=== PATIENT | male | born 1990 | race Caucasian/White ===

== ENCOUNTER 2023-08-11 16:27 | Inpatient (IN) | payer MEDICARE, MEDICAID, SELFPAY ==
[2023-08-11 16:45] VITALS: BP 107/51; PULSE 59; RESP 16; TEMP 36.8; O2SAT 98
[2023-08-11 16:47] VITALS: BMI 31.9
[2023-08-11 22:00] VITALS: BP 107/69; PULSE 68; RESP 17; TEMP 36.9; O2SAT 97
[2023-08-12 06:00] VITALS: BP 113/76; PULSE 72; RESP 18; TEMP 36.9; O2SAT 97
--- NOTE | 2023-08-12 12:07 | W.PM.NPUH&PS ---
Providers/Chief Complaint Admitting Physician: Aaron Prado MD Primary Care Provider: DOCTOR NOT ON FILE Chief Complaint: Schizophrenia HPI NPU History of Present Illness Blue [place] is a 32 year old male presented to an outside hospital with reports of psychosis and concerns for bizarre behaviors. He was put on a 96-hour hold and transferred to [facility] and admitted to the neuropsychiatric unit for definitive treatment of those issues. The patient presents today reporting that he is not currently taking any psychiatric medications. He reports that he is not sure why he is here. He is on a 96-hour hold but reports he does not know why. The patient endorses a couple previous psychiatric hospitalizations, at [facility]. The first time was about six to seven years ago. He reports outpatient services at [facility]. He endorses that he has been on Invega, in the past. He reports that he is not taking it anymore because he [facility]. He reports that the Invega was helpful. He reports that he did the Invega injections. The patient reports that he smokes cigarettes heavily. He endorses daily alcohol use. He endorses marijuana use. He denies cocaine, methamphetamine, or opiates. He denies drug rehabilitation, DUI, or other drug related charges. The patient reports that his mental health issues started when he was younger. He reports that he was on ADHD medications. He denies hearing voices or having paranoia. He denies depression or anxiety. He endorses some traumas and nightmares and flashbacks, but not recently. We discussed the risks, benefits, and alternatives of starting an oral dose of Invega today and then starting the Invega injection before he is discharged, and he understood and agreed to proceed as is documented in this note. PSYCHIATRIC HISTORY: As above. He was questionable as a historian and often could not give more than vague answers. SUBSTANCE ABUSE HISTORY: As above. FAMILY HISTORY: The patient denies mental health issues on either side of the family. He endorses addiction issues on both sides of the family. He denies any suicide attempts or completions in the family. DEVELOPMENTAL HISTORY: The patient denies any issues with his mother?s or delivery of him. The patient reports learning to walk and talk and meeting developmental milestones on time. The patient endorses speech therapy, learning support, emotional support, special education classes. He endorses having an IEP. PSYCHOSOCIAL HISTORY: The patient reports that his mother and father were not together at his . He reports that he has an older brother from that union. He reports that his father had other children. He describes his childhood as good. He denies emotional, physical, or sexual abuse. He denies CYS involvement. He endorses traumas outside the home. He reports that he did not graduate from high school and went to the 11th grade. He has no other training. He endorses being heterosexual, with his longest relationship being a couple years. He has never been and has no children. He denies service or a baptist belief system. 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 He is not currently working and is on disability, which started a couple years ago, for schizophrenia. He reports that he is currently homeless. LEGAL HISTORY: The patient reports he has been to [facility] couple of times. The longest times was three years. MEDICAL HISTORY: The patient denies any known allergies to medications. He denies any major medical issues. Meds NPU Allergies Allergy/AdvReac Type Severity Reaction Status Date / Time trazodone Allergy ADV-Weaknes Verified 08/11/23 18:04 s Mental Status Exam MSE Comments: This is a well-nourished, well-developed, white male, in hospital scrubs, with limited grooming and intense eye contact. No abnormal movements, except for significant psychomotor agitation with constant movement of his legs in a rocking fashion. Somewhat cooperative with exam in moderate distress. Speech was normal rate and volume, with very clipped responses. Mood described as good; affect guarded and anxious. Thought process, linear and mostly organized. Thought content: patient denied any suicidal or homicidal ideation; no delusions reported, but guardedness and likely paranoia noted; patient denied any auditory or visual hallucinations. Attention, concentration, and memory appeared intact, but none were formally tested. Alert and oriented times three. Insight and judgment are limited. Impulse control is impaired. lly appropriate intervention, at this time. Vitals/I&O/Wt Last Vital Signs Temp 98.5 F 08/12/23 06:00 Pulse 72 08/12/23 06:00 Resp 18 08/12/23 06:00 BP 113/76 08/12/23 06:00 Pulse Ox 97 08/12/23 06:00 O2 Del Method Room Air 08/12/23 06:00 Weight last 48 hrs Weight 95.254 kg A&P Assessment and plan (1) Schizophrenia: (2) Acute psychosis: Plan This is a 32, almost 33-year-old, white male, with a history of mental health issues starting when he was young, not currently on medication due to it being discontinued secondary to being [facility], who presents on a 96-hour hold with a willingness to restart Invega. 1. Restart Invega with oral dose and plan for injection as soon as available. 2. Encourage individual, group, and milieu therapy. 3. Continue q-15-minute checks for safety. Involuntary Hold Information 96 Hour Hold: 96 Hour Involuntary Admission: Yes 96 Hour Hold Ending Date: 08/17/23 96 Hour Hold Ending Time: 16:32 Attestations NPU Medical Necessity Statement*: Inpatient hospitalization is medically necessary and the clinically appropriate intervention at this time. We will monitor medications and make changes as indicated. Patient will be in the hospital for over two midnights. Likely length of stay is 3 to 5 days. Coding Level of Care Code Acute Code for [facility] Fwd Diagnoses Schizophrenia F20.9 Acute psychosis F23
[2023-08-12 14:00] VITALS: BP 110/68; PULSE 63; RESP 17; TEMP 36.6; O2SAT 98
[2023-08-12 20:27] VITALS: BP 105/65; PULSE 68; RESP 16; TEMP 36.6; O2SAT 98
[2023-08-13 06:00] VITALS: BP 103/61; PULSE 65; RESP 16; TEMP 36.8; O2SAT 95
[2023-08-13] MEDS: flu vacc pf 2023-24 (6 mos+) 60 MCG IM (06:11)
--- NOTE | 2023-08-13 08:49 | PC.NURSE ---
Got up to eat breakfast and then laid back down in bed. Patient denies avh and si/hi. He is very malodorous and hygiene items were offered, but he refused.
--- NOTE | 2023-08-13 11:14 | P.NPUPN_ITS ---
Subjective NPU Subjective: Patient presented today reporting that he is doing okay. He reports that he did get his injection today and he is not currently having any issues with that. He reports that he is a little tired and wanted to continue resting. Mental Status Exam MSE Comments: This is a well-nourished, well-developed, white male, in hospital scrubs, with limited grooming and intense eye contact. No abnormal movements, except for significant psychomotor agitation with constant movement of his legs in a rocking fashion. Somewhat cooperative with exam in moderate distress. Speech was normal rate and volume, with very clipped responses. Mood described as good; affect guarded and anxious. Thought process, linear and mostly organized. Thought content: patient denied any suicidal or homicidal ideation; no delusions reported, but guardedness and likely paranoia noted; patient denied any auditory or visual hallucinations. Attention, concentration, and memory appeared intact, but none were formally tested. Alert and oriented times three. Insight and judgment are limited. Impulse control is impaired. Vitals/I&O/Wt Last Vital Signs Temp 98.3 F 08/13/23 06:00 Pulse 65 08/13/23 06:00 Resp 16 08/13/23 06:00 BP 103/61 08/13/23 06:00 Pulse Ox 95 08/13/23 06:00 O2 Del Method Room Air 08/13/23 06:00 Weight last 48 hrs Weight 95.254 kg A&P Assessment and plan (1) Schizophrenia: (2) Acute psychosis: Plan This is a 32, almost 33-year-old, white male, with a history of mental health issues starting when he was young, not currently on medication due to it being discontinued secondary to being in skilled nursing, who presents on a 96-hour hold with a willingness to restart Invega. 1. Restarted Invega 6 mg p.o. daily and he was given Invega Sustenna 234 mg IM to the deltoid as a loading dose today, 08/13/2023. 2. Encourage individual, group, and milieu therapy. 3. Continue q-15-minute checks for safety. Involuntary Hold Information 96 Hour Hold: 96 Hour Involuntary Admission: Yes 96 Hour Hold Ending Date: 08/17/23 96 Hour Hold Ending Time: 16:32 Attestations NPU Medical Necessity Statement*: Inpatient hospitalization is medically necessary and the clinically appropriate intervention at this time. We will monitor medications and make changes as indicated. Likely length of stay is 3 to 5 days. Coding Level of Care Code Acute Code for [facility] Fwd Diagnoses Schizophrenia F20.9 Acute psychosis F23
[2023-08-13] MEDS: paliperidone palmitate 234 mg Syringe IM (11:47)
[2023-08-13] MEDS: paliperidone ER 6 mg Tablet PO (11:47)
--- NOTE | 2023-08-13 12:05 | PC.NURSE ---
Patient willingly took Invega 234mg IM and tablet. Patient tolerated well.
[2023-08-13 14:00] VITALS: BP 95/59; PULSE 61; RESP 16; TEMP 36.9; O2SAT 97
[2023-08-13 20:04] VITALS: BP 103/67; PULSE 74; RESP 16; TEMP 36.9; O2SAT 95
[2023-08-14 06:00] VITALS: BP 110/70; PULSE 67; RESP 18; O2SAT 95
[2023-08-14] MEDS: paliperidone ER 6 mg Tablet PO (09:23)
[2023-08-14] MEDS: nicotine 2 mg Gum BUCCAL (09:25)
[2023-08-14 14:00] VITALS: BP 110/68; PULSE 92; RESP 17; TEMP 36.8; O2SAT 98
--- NOTE | 2023-08-14 16:33 | W.PM.NPUPNS ---
Subjective NPU Subjective: Patient presented today reporting that he is adjusting to the Invega and that he is having no side effects. He reports that he is lying in bed because he has been tired and had not really been getting a good sleep prior to coming into the hospital. He denied any new issues. Mental Status Exam MSE Comments: This is a well-nourished, well-developed, white male, in hospital scrubs, with limited grooming and intense eye contact. No abnormal movements, except for significant psychomotor retardation. Lying in bed reporting that he is fine. Somewhat cooperative with exam in moderate distress. Speech was normal rate and volume, with very clipped responses. Mood described as good; affect guarded and anxious. Thought process, linear and mostly organized. Thought content: patient denied any suicidal or homicidal ideation; no delusions reported, but guardedness and likely paranoia noted; patient denied any auditory or visual hallucinations. Attention, concentration, and memory appeared intact, but none were formally tested. Alert and oriented times three. Insight and judgment are limited. Impulse control is impaired. Vitals/I&O/Wt Last Vital Signs Temp 98.3 F 08/14/23 14:00 Pulse 92 08/14/23 14:00 Resp 17 08/14/23 14:00 BP 110/68 08/14/23 14:00 Pulse Ox 98 08/14/23 14:00 O2 Del Method Room Air 08/14/23 06:00 A&P Assessment and plan (1) Schizophrenia: (2) Acute psychosis: Plan This is a 32, almost 33-year-old, white male, with a history of mental health issues starting when he was young, not currently on medication due to it being discontinued secondary to being in shelter, who presents on a 96-hour hold with a willingness to restart Invega. 1. Restarted Invega 6 mg p.o. daily and he was given Invega Sustenna 234 mg IM to the deltoid as a loading dose 08/13/2023. 2. Encourage individual, group, and milieu therapy. 3. Continue q-15-minute checks for safety. Involuntary Hold Information 96 Hour Hold: 96 Hour Involuntary Admission: Yes 96 Hour Hold Ending Date: 08/17/23 96 Hour Hold Ending Time: 16:32 Attestations NPU Medical Necessity Statement*: Inpatient hospitalization is medically necessary and the clinically appropriate intervention at this time. We will monitor medications and make changes as indicated. Likely length of stay is 3 to 5 days. Coding Level of Care Code Acute Code for [facility] Fwd Diagnoses Schizophrenia F20.9 Acute psychosis F23
[2023-08-14 22:00] VITALS: BP 88/61; PULSE 88; RESP 16; TEMP 37.1; O2SAT 95
[2023-08-15 06:00] VITALS: BP 108/74; PULSE 75; RESP 16; O2SAT 96
[2023-08-15] MEDS: paliperidone ER 6 mg Tablet PO (09:51)
--- NOTE | 2023-08-15 10:18 | P.NPUPN_ITS ---
Subjective NPU Subjective: Patient presented today continuing to be fairly isolative in his interactions. He was once again lying in bed but responsive to interview. He reports he is feeling a lot better on the medication but could not really articulate what things the Invega is resolving even though staff reports are that he seems less guarded and fearful. We discussed him getting his next injection later this week and working with the social work team tomorrow to start looking at what his residential options are going to be. Mental Status Exam MSE Comments: This is a well-nourished, well-developed, white male, in hospital scrubs, with limited grooming and intense eye contact. No abnormal movements, except for significant psychomotor retardation. Lying in bed reporting that he is fine. Somewhat cooperative with exam in moderate distress. Speech was normal rate and volume, with very clipped responses. Mood described as good; affect guarded and anxious. Thought process, linear and mostly organized. Thought content: patient denied any suicidal or homicidal ideation; no delusions reported, but guardedness and likely paranoia noted; patient denied any auditory or visual hallucinations. Attention, concentration, and memory appeared intact, but none were formally tested. Alert and oriented times three. Insight and judgment are limited. Impulse control is impaired. Vitals/I&O/Wt Last Vital Signs Temp 98.8 F 08/14/23 22:00 Pulse 75 08/15/23 06:00 Resp 16 08/15/23 06:00 BP 108/74 08/15/23 06:00 Pulse Ox 96 08/15/23 06:00 O2 Del Method Room Air 08/15/23 06:00 Weight last 48 hrs Weight 84.368 kg A&P Assessment and plan (1) Schizophrenia: (2) Acute psychosis: Plan This is a 32, almost 33-year-old, white male, with a history of mental health issues starting when he was young, not currently on medication due to it being discontinued [facility], who presents on a 96-hour hold with a willingness to restart Invega. 1. Restarted Invega 6 mg p.o. daily and he was given Invega Sustenna 234 mg IM to the deltoid as a loading dose 08/13/2023, next dose due by 08/20/2023. 2. Encourage individual, group, and milieu therapy. 3. Continue q-15-minute checks for safety. Involuntary Hold Information 96 Hour Hold: 96 Hour Involuntary Admission: Yes 96 Hour Hold Ending Date: 08/17/23 96 Hour Hold Ending Time: 16:32 Attestations NPU Medical Necessity Statement*: Inpatient hospitalization is medically necessary and the clinically appropriate intervention at this time. We will monitor medications and make changes as indicated. Likely length of stay is 3 to 5 days. Coding Level of Care Code Acute Code for [facility] Fwd Diagnoses Schizophrenia F20.9 Acute psychosis F23
[2023-08-15 14:00] VITALS: BP 93/59; PULSE 78; RESP 17; TEMP 36.8; O2SAT 97
[2023-08-15 20:09] VITALS: BP 98/62; PULSE 81; RESP 13; TEMP 36.9; O2SAT 94
[2023-08-16 06:00] VITALS: BP 100/66; PULSE 77; RESP 14; TEMP 36.9; O2SAT 96
[2023-08-16] MEDS: paliperidone ER 6 mg Tablet PO (08:45)
--- NOTE | 2023-08-16 11:12 | P.NPUPN_ITS ---
Subjective NPU Subjective: Patient presented today reporting that he is feeling better. He continues to seem somewhat confused as to where he will go next at 1 point talking about going to his mother's but then reporting he could not go to his mother's and that he was homeless. He did report feeling that he was thinking more clearly. He denied any side effects to the medication including the injection. We discussed the fact that we were initiating 21-day hold paperwork because we feel like he needs a little more time and that we need to assist him in finding some kind of stable discharge plan given his level of psychosis. Mental Status Exam MSE Comments: This is a well-nourished, well-developed, white male, in hospital scrubs, with limited grooming and intense eye contact. No abnormal movements, except for s ignificant psychomotor retardation. Lying in bed reporting that he is fine. Somewhat cooperative with exam in moderate distress. Speech was normal rate and volume, with very clipped responses. Mood described as good; affect guarded and anxious. Thought process, linear and mostly organized. Thought content: patient denied any suicidal or homicidal ideation; no delusions reported, but guardedness and likely paranoia noted; patient denied any auditory or visual hallucinations. Attention, concentration, and memory appeared intact, but none were formally tested. Alert and oriented times three. Insight and judgment are limited. Impulse control is impaired. Vitals/I&O/Wt Last Vital Signs Temp 98.4 F 08/16/23 06:00 Pulse 77 08/16/23 06:00 Resp 14 08/16/23 06:00 BP 100/66 08/16/23 06:00 Pulse Ox 96 08/16/23 06:00 O2 Del Method Room Air 08/16/23 06:00 Weight last 48 hrs Weight 84.368 kg A&P Assessment and plan (1) Schizophrenia: (2) Acute psychosis: Plan This is a 32, almost 33-year-old, white male, with a history of mental health issues starting when he was young, not currently on medication due to it being discontinued secondary to being in skilled nursing, who presents on a 96-hour hold with a willingness to restart Invega. 1. Restarted Invega 6 mg p.o. daily and he was given Invega Sustenna 234 mg IM to the deltoid as a loading dose 08/13/2023, next dose due by 08/20/2023. 2. Encourage individual, group, and milieu therapy. 3. Continue q-15-minute checks for safety. 4. Submitted 21-day hold paperwork today 08/16/2023 Involuntary Hold Information 96 Hour Hold: 96 Hour Involuntary Admission: Yes 96 Hour Hold Ending Date: 08/17/23 96 Hour Hold Ending Time: 16:32 Attestations NPU Medical Necessity Statement*: Inpatient hospitalization is medically necessary and the clinically appropriate intervention at this time. We will monitor medications and make changes as indicated. Likely length of stay is 3 to 5 days. Length of stay might be affected by 21-day hold and placement. Coding Level of Care Code Acute Code for [facility] Fwd Diagnoses Schizophrenia F20.9 Acute psychosis F23
[2023-08-16 14:00] VITALS: BP 115/69; PULSE 90; RESP 16; TEMP 36.6; O2SAT 96
[2023-08-16 19:45] VITALS: BP 100/65; PULSE 76; RESP 16; TEMP 37.3; O2SAT 94
[2023-08-17 06:00] VITALS: BP 108/69; PULSE 77; RESP 16; O2SAT 96
[2023-08-17] MEDS: paliperidone ER 6 mg Tablet PO (09:38)
--- NOTE | 2023-08-17 10:56 | P.NPUPN_ITS ---
Subjective NPU Subjective: Patient presented today continuing to have isolation and limited dialogue per staff. Patient is found in the room vast amount of time. We discussed working on reasonable options for where to go to next and he often is very confused during this stay in reports he may need to go home but is unclear why. We discussed the fact that he has a 21-day hold hearing today and we discussed what this senior medical writer would likely report. Mental Status Exam MSE Comments: This is a well-nourished, well-developed, white male, in hospital scrubs, with limited grooming and intense eye contact. No abnormal movements, except for significant psychomotor retardation. Lying in bed reporting that he is fine. Somewhat cooperative with exam in moderate distress. Speech was normal rate and volume, with very clipped responses. Mood described as good; affect guarded and anxious. Thought process, linear and mostly organized. Thought content: patient denied any suicidal or homicidal ideation; no delusions reported, but guardedness and likely paranoia noted; patient denied any auditory or visual hallucinations. Attention, concentration, and memory appeared intact, but none were formally tested. Alert and oriented times three. Insight and judgment are limited. Impulse control is impaired. Vitals/I&O/Wt Last Vital Signs Temp 99.1 F 08/16/23 19:45 Pulse 77 08/17/23 06:00 Resp 16 08/17/23 06:00 BP 108/69 08/17/23 06:00 Pulse Ox 96 08/17/23 06:00 O2 Del Method Room Air 08/17/23 06:00 A&P Assessment and plan (1) Schizophrenia: (2) Acute psychosis: Plan This is a 32, almost 33-year-old, white male, with a history of mental health issues starting when he was young, not currently on medication due to it being discontinued secondary to being in senior care, who presents on a 96-hour hold with a willingness to restart Invega. 1. Restarted Invega 6 mg p.o. daily and he was given Invega Sustenna 234 mg IM to the deltoid as a loading dose 08/13/2023, next dose due by 08/20/2023. 2. Encourage individual, group, and milieu therapy. 3. Continue q-15-minute checks for safety. 4. 21-day hold hearing today, 08/17/2023 at 3 PM Involuntary Hold Information 96 Hour Hold: 96 Hour Involuntary Admission: Yes 96 Hour Hold Ending Date: 08/17/23 96 Hour Hold Ending Time: 16:32 Attestations NPU Medical Necessity Statement*: Inpatient hospitalization is medically necessary and the clinically appropriate intervention at this time. We will monitor medications and make changes as indicated. Likely length of stay is 3 to 5 days. Length of stay might be affected by 21-day hold and placement. Coding Level of Care Code Acute Code for [facility] Fwd Diagnoses Schizophrenia F20.9 Acute psychosis F23
[2023-08-17 14:00] VITALS: BP 93/56; PULSE 66; RESP 16; TEMP 36.6; O2SAT 97
[2023-08-17] MEDS: nicotine 2 mg Gum BUCCAL (16:27)
[2023-08-17 21:01] VITALS: BP 109/74; PULSE 64; RESP 16; TEMP 36.9; O2SAT 96
[2023-08-18 06:00] VITALS: BP 94/61; PULSE 82; RESP 17; TEMP 36.9; O2SAT 96
--- NOTE | 2023-08-18 09:14 | P.NPUPN_ITS ---
Subjective NPU Subjective: Patient presented today reporting that he understood that he is only 21-day hold but was wondering how long he thought he might stay. We talked about the importance of him not leaving here homeless of run a have him continue his medication effectively. We also discussed the fact that we have reports that he was functioning so poorly that some entity in his catchment area was working on guardianship. He has some resistance to the idea of guardianship but also does not understand how it really works. He continued to be isolative per staff and for observation. We discussed the next loading dose of Invega Sustenna in 2 days. Mental Status Exam MSE Comments: This is a well-nourished, well-developed, white male, in hospital scrubs, with limited grooming and intense eye contact. No abnormal movements, except for significant psychomotor retardation. Lying in bed reporting that he is fine. Somewhat cooperative with exam in mild distress. Speech was normal rate and volume, with very truncated responses. Mood described as good; affect guarded and anxious. Thought process, linear and mostly organized. Thought content: patient denied any suicidal or homicidal ideation; no delusions reported, but guardedness and likely paranoia noted; patient denied any auditory or visual hallucinations. Attention, concentration, and memory appeared intact, but none were formally tested. Alert and oriented times three. Insight and judgment are limited. Impulse control is impaired. Vitals/I&O/Wt Last Vital Signs Temp 98.5 F 08/18/23 06:00 Pulse 82 08/18/23 06:00 Resp 17 08/18/23 06:00 BP 94/61 08/18/23 06:00 Pulse Ox 96 08/18/23 06:00 O2 Del Method Room Air 08/18/23 06:00 A&P Assessment and plan (1) Schizophrenia: (2) Acute psychosis: Plan This is a 32, almost 33-year-old, white male, with a history of mental health issues starting when he was young, not currently on medication due to it being discontinued secondary to being in prison, who presents on a 96-hour hold with a willingness to restart Invega. 1. Restarted Invega 6 mg p.o. daily and he was given Invega Sustenna 234 mg IM to the deltoid as a loading dose 08/13/2023, next dose due by 08/20/2023. 2. Encourage individual, group, and milieu therapy. 3. Continue q-15-minute checks for safety. 4. 21-day hold granted 08/17/2023. Involuntary Hold Information 96 Hour Hold: 96 Hour Involuntary Admission: Yes 96 Hour Hold Ending Date: 08/17/23 96 Hour Hold Ending Time: 16:32 Attestations NPU Medical Necessity Statement*: Inpatient hospitalization is medically necessary and the clinically appropriate intervention at this time. We will monitor medications and make changes as indicated. Likely length of stay is 7-10 days. Length of stay might be affected by 21-day hold and placement. Coding Level of Care Code Acute Code for [facility] Fwd Diagnoses Schizophrenia F20.9 Acute psychosis F23
[2023-08-18] MEDS: paliperidone ER 6 mg Tablet PO (09:15)
[2023-08-18] MEDS: nicotine 2 mg Gum BUCCAL ×2 (13:03→15:51)
[2023-08-18 14:00] VITALS: BP 92/53; PULSE 74; RESP 16; TEMP 36.9; O2SAT 96
[2023-08-18 21:01] VITALS: BP 105/58; PULSE 65; RESP 16; TEMP 36.8; O2SAT 97
--- NOTE | 2023-08-19 07:00 | PC.NURSE ---
pt ref vs resp 18
[2023-08-19] MEDS: paliperidone ER 6 mg Tablet PO (09:10)
--- NOTE | 2023-08-19 12:02 | P.NPUPN_ITS ---
Subjective NPU Subjective: Patient presented today reporting that he is doing okay. He was noted outside of his room and so little less isolative. He continues to have limited spontaneous speech but was less resistant to question and answering. He is aware that he is on probation and needs to return to the area in which she lives but he has little to no insight and no clear skills to orchestrate or support any plan. Mental Status Exam MSE Comments: This is a well-nourished, well-developed, white male, in hospital scrubs, with limited grooming and intense eye contact. No abnormal movements, except for significant psychomotor retardation. Lying in bed reporting that he is fine. Somewhat cooperative with exam in mild distress. Speech was normal rate and volume, with very truncated responses. Mood described as good; affect guarded and anxious. Thought process, linear and mostly organized. Thought content: patient denied any suicidal or homicidal ideation; no delusions reported, but guardedness and likely paranoia noted; patient denied any auditory or visual hallucinations. Attention, concentration, and memory appeared intact, but none were formally tested. Alert and oriented times three. Insight and judgment are limited. Impulse control is impaired. Vitals/I&O/Wt Last Vital Signs Temp 98.3 F 08/18/23 21:01 Pulse 65 08/18/23 21:01 Resp 16 08/18/23 21:01 BP 105/58 08/18/23 21:01 Pulse Ox 97 08/18/23 21:01 O2 Del Method Room Air 08/18/23 21:01 A&P Assessment and plan (1) Schizophrenia: (2) Acute psychosis: Plan This is a 32, almost 33-year-old, white male, with a history of mental health i ssues starting when he was young, not currently on medication due to it being discontinued secondary to being in residential, who presents on a 96-hour hold with a willingness to restart Invega. 1. Restarted Invega 6 mg p.o. daily and he was given Invega Sustenna 234 mg IM to the deltoid as a loading dose 08/13/2023, next dose due by 08/20/2023. 2. Encourage individual, group, and milieu therapy. 3. Continue q-15-minute checks for safety. 4. 21-day hold granted 08/17/2023. Involuntary Hold Information 96 Hour Hold: 96 Hour Involuntary Admission: Yes 96 Hour Hold Ending Date: 08/17/23 96 Hour Hold Ending Time: 16:32 Attestations NPU Medical Necessity Statement*: Inpatient hospitalization is medically necessary and the clinically appropriate intervention at this time. We will monitor medications and make changes as indicated. Likely length of stay is 7-10 days. Length of stay might be affected by 21-day hold and placement. Coding Level of Care Code Acute Code for [facility] Fwd Diagnoses Schizophrenia F20.9 Acute psychosis F23
[2023-08-19] MEDS: nicotine 2 mg Gum BUCCAL ×2 (13:51→16:52)
[2023-08-19 14:00] VITALS: BP 108/63; PULSE 62; RESP 16; TEMP 36.9; O2SAT 97
[2023-08-19] MEDS: OLANZapine 5 mg ODT PO (17:16)
[2023-08-19 20:26] VITALS: BP 101/62; PULSE 63; RESP 16; TEMP 36.9; O2SAT 97
[2023-08-20 06:00] VITALS: RESP 18
--- NOTE | 2023-08-20 06:55 | PC.NURSE ---
Unable to obtain vitals due to patient deeply sleeping. RR obtained
[2023-08-20] MEDS: paliperidone ER 6 mg Tablet PO (08:54)
--- NOTE | 2023-08-20 08:59 | PC.NURSE ---
During morning assessment, patient denies all. Patient resting in bed. Patient did get up to the dayroom for breakfast. Patient withdrawn.
[2023-08-20 14:00] VITALS: BP 146/87; PULSE 83; RESP 16; TEMP 36.6; O2SAT 96
--- NOTE | 2023-08-20 14:04 | W.PM.NPUPNS ---
Subjective NPU Subjective: Patient presented today reporting that he is doing fine. Continues to be isolative and staying in bed but more engaging when he is out of bed. He denied any problems with the medication and we discussed that his second loading dose of Invega 156 mg IM to the deltoid is due today before he is on the monthly schedule. Staff reports continued isolation but slow and steady improvements. Mental Status Exam MSE Comments: This is a well-nourished, well-developed, white male, in hospital scrubs, with limited grooming and intense eye contact. No abnormal movements, except for significant psychomotor retardation. Lying in bed reporting that he is fine. Somewhat cooperative with exam in mild distress. Speech was normal rate and volume, with very truncated responses. Mood described as good; affect guarded and anxious. Thought process, linear and mostly organized. Thought content: patient denied any suicidal or homicidal ideation; no delusions reported, but guardedness and likely paranoia noted; patient denied any auditory or visual hallucinations. Attention, concentration, and memory appeared intact, but none were formally tested. Alert and oriented times three. Insight and judgment are limited. Impulse control is impaired. Vitals/I&O/Wt Last Vital Signs Temp 98.4 F 08/19/23 20:26 Pulse 63 08/19/23 20:26 Resp 18 08/20/23 06:00 BP 101/62 08/19/23 20:26 Pulse Ox 97 08/19/23 20:26 O2 Del Method Room Air 08/19/23 20:26 A&P Assessment and plan (1) Schizophrenia: (2) Acute psychosis: Plan This is a 32, almost 33-year-old, white male, with a history of mental health issues starting when he was young, not currently on medication due to it being discontinued secondary to being in snf, who presents on a 96-hour hold with a willingness to restart Invega. 1. Restarted Invega 6 mg p.o. daily and he was given Invega Sustenna 234 mg IM to the deltoid as a loading dose 08/13/2023, next dose due today 08/20/2023, loading dose to deltoid. 2. Encourage individual, group, and milieu therapy. 3. Continue q-15-minute checks for safety. 4. 21-day hold granted 08/17/2023. Involuntary Hold Information 96 Hour Hold: 96 Hour Involuntary Admission: Yes 96 Hour Hold Ending Date: 08/17/23 96 Hour Hold Ending Time: 16:32 Attestations NPU Medical Necessity Statement*: Inpatient hospitalization is medically necessary and the clinically appropriate intervention at this time. We will monitor medications and make changes as indicated. Likely length of stay is 7-10 days. Length of stay might be affected by 21-day hold and placement. Coding Level of Care Code Acute Code for [facility] Fwd Diagnoses Schizophrenia F20.9 Acute psychosis F23
[2023-08-20] MEDS: paliperidone palmitate 156 mg Syringe IM (15:52)
[2023-08-20] MEDS: nicotine 2 mg Gum BUCCAL (15:52)
--- NOTE | 2023-08-20 16:00 | PC.NURSE ---
Administered invega sustenna 156mg/ML to patient's left deltoid muscle. No adverse reactions. Patient tolerated well. EXP: 12/2024 Lot [id number]
[2023-08-20 20:44] VITALS: BP 94/58; PULSE 58; RESP 16; TEMP 36.8; O2SAT 95
--- NOTE | 2023-08-20 20:44 | PC.NURSE ---
IN BED RESTING IN BED AROUSES TO VOICE. PT DENIES PAIN, DENIES SI/HI AND AVH AT THIS TIME. PT DECLINES ANY MEDICATIONS TO HELP HIM SLEEP. LAST BM 08/20. NO DISTRESS NOTED AT THIS TIME.
[2023-08-21 06:00] VITALS: RESP 16
[2023-08-21] MEDS: paliperidone ER 6 mg Tablet PO (08:23)
--- NOTE | 2023-08-21 08:25 | W.PM.NPUPNS ---
Subjective NPU Subjective: Patient presented today reporting that he is doing okay. Still sleeping in bed and being isolative but reporting that he is doing better. Continues to have limited spontaneous speech per staff and direct observation. He denies any side effects from the medications and did get his second loading dose of Invega Sustenna 156 mg IM to the deltoid yesterday. Mental Status Exam MSE Comments: This is a well-nourished, well-developed, white male, in hospital scrubs, with limited grooming and intense eye contact. No abnormal movements, except for significant psychomotor retardation. Lying in bed reporting that he is fine. Somewhat cooperative with exam in mild distress. Speech was normal rate and volume, with very truncated responses. Mood described as good; affect guarded and anxious. Thought process, linear and mostly organized. Thought content: patient denied any suicidal or homicidal ideation; no delusions reported, but guardedness and likely paranoia noted; patient denied any auditory or visual hallucinations. Attention, concentration, and memory appeared intact, but none were formally tested. Alert and oriented times three. Insight and judgment are limited. Impulse control is impaired. Vitals/I&O/Wt Last Vital Signs Temp 98.2 F 08/20/23 20:44 Pulse 58 L 08/20/23 20:44 Resp 16 08/21/23 06:00 BP 94/58 08/20/23 20:44 Pulse Ox 95 08/20/23 20:44 O2 Del Method Room Air 08/20/23 20:44 A&P Assessment and plan (1) Schizophrenia: (2) Acute psychosis: Plan This is a 32, almost 33-year-old, white male, with a history of mental health issues starting when he was young, not currently on medication due to it being discontinued secondary to being in correction, who presents on a 96-hour hold with a willingness to restart Invega. 1. Restarted Invega 6 mg p.o. daily and he was given Invega Sustenna 234 mg IM to the deltoid as a loading dose 08/13/2023, next dose given 08/20/2023, loading dose to deltoid. Next dose 09/17/23. 2. Encourage individual, group, and milieu therapy. 3. Continue q-15-minute checks for safety. 4. 21-day hold granted 08/17/2023. Involuntary Hold Information 96 Hour Hold: 96 Hour Involuntary Admission: Yes 96 Hour Hold Ending Date: 08/17/23 96 Hour Hold Ending Time: 16:32 Attestations NPU Medical Necessity Statement*: Inpatient hospitalization is medically necessary and the clinically appropriate intervention at this time. We will monitor medications and make changes as indicated. Likely length of stay is 7-10 days. Length of stay might be affected by 21-day hold and placement. Coding Level of Care Code Acute Code for [facility] Fwd Diagnoses Schizophrenia F20.9 Acute psychosis F23
[2023-08-21 14:00] VITALS: BP 108/65; PULSE 63; RESP 16; TEMP 37.1; O2SAT 97
[2023-08-21] MEDS: nicotine 2 mg Gum BUCCAL (16:37)
[2023-08-21 20:05] VITALS: BP 107/61; PULSE 86; RESP 16; TEMP 36.9; O2SAT 98
--- NOTE | 2023-08-21 20:24 | PC.NURSE ---
PT IN BED AROUSES TO VOICE. PT DENIES PAIN. DENIES SI/HI AND AVH AT THIS TIME. PT EVASIVE DOES NOT ELABORATE ON ANY SUBJECT. PT ROLLED OVER AND WENT BACK TO SLEEPING. DENIES ANXIETY AND DEPRESSION WELL.
[2023-08-22 06:00] VITALS: BP 94/57; PULSE 62; RESP 16; TEMP 36.9; O2SAT 96; BMI 27.8
[2023-08-22] MEDS: paliperidone ER 6 mg Tablet PO (08:38)
[2023-08-22] MEDS: nicotine 2 mg Gum BUCCAL ×2 (12:30→15:13)
--- NOTE | 2023-08-22 12:41 | W.PM.NPUPNS ---
Subjective NPU Subjective: Patient presented today reporting that he is doing okay. He was very much interested in knowing what is going to be assisting him in his return to home etc. Staff reports of some improvement in his isolation and spontaneous behavior and some improvement noted on direct observation. We discussed specifically that he is working with Beata and the social work team and they will be back tomorrow he will be able to speak to her about any progress that she has made in connecting with residents or resources or anything else in the community. Mental Status Exam MSE Comments: This is a well-nourished, well-developed, white male, in hospital scrubs, with limited grooming and intense eye contact. No abnormal movements, except for significant psychomotor retardation. Lying in bed reporting that he is fine. Somewhat cooperative with exam in mild distress. Speech was normal rate and volume, with very truncated responses. Mood described as good; affect guarded and anxious. Thought process, linear and mostly organized. Thought content: patient denied any suicidal or homicidal ideation; no delusions reported, but guardedness and likely paranoia noted; patient denied any auditory or visual hallucinations. Attention, concentration, and memory appeared intact, but none were formally tested. Alert and oriented times three. Insight and judgment are limited. Impulse control is impaired. Vitals/I&O/Wt Last Vital Signs Temp 98.4 F 08/22/23 06:00 Pulse 62 08/22/23 06:00 Resp 16 08/22/23 06:00 BP 94/57 08/22/23 06:00 Pulse Ox 96 08/22/23 06:00 O2 Del Method Room Air 08/22/23 06:00 Weight last 48 hrs Weight 83.092 kg Weight 83.092 kg A&P Assessment and plan (1) Schizophrenia: (2) Acute psychosis: Plan This is a 32, almost 33-year-old, white male, with a history of mental health issues starting when he was young, not currently on medication due to it being discontinued secondary to being in [facility], who presents on a 96-hour hold with a willingness to restart Invega. 1. Restarted Invega 6 mg p.o. daily and he was given Invega Sustenna 234 mg IM to the deltoid as a loading dose 08/13/2023, next dose given 08/20/2023, loading dose to deltoid. Next dose 09/17/23. 2. Encourage individual, group, and milieu therapy. 3. Continue q-15-minute checks for safety. 4. 21-day hold granted 08/17/2023. Involuntary Hold Information 96 Hour Hold: 96 Hour Involuntary Admission: Yes 96 Hour Hold Ending Date: 08/17/23 96 Hour Hold Ending Time: 16:32 Attestations NPU Medical Necessity Statement*: Inpatient hospitalization is medically necessary and the clinically appropriate intervention at this time. We will monitor medications and make changes as indicated. Likely length of stay is 7-10 days. Length of stay might be affected by 21-day hold and placement. Coding Level of Care Code Acute Code for [facility] Fwd Diagnoses Schizophrenia F20.9 Acute psychosis F23
[2023-08-22 14:00] VITALS: BP 93/57; PULSE 74; RESP 18; TEMP 36.9; O2SAT 96
[2023-08-22 19:29] VITALS: BP 104/77; PULSE 71; RESP 14; TEMP 36.6; O2SAT 95
[2023-08-22] MEDS: hyDROXYzine 25 mg Capsule 50 MG PO (20:07)
--- NOTE | 2023-08-22 20:33 | PC.NURSE ---
Addendum entered and electronically signed by Sabrina Molina RN 08/23/23 04:42: PT HAS RESTED WELL ALL NIGHT THUS FAR. VISTARIL IS DEEMED EFFECTIVE. PT CONTINUES TO REST, NO DISTRESS NOTED Original Note: IN BED RESTING AROUSES TO VOICE. PT DENIES SI/HI AND AVH AT THIS TIME. PT DENIES PAIN. REQUEST TRAZODONE FOR SLEEP, UPON REVIEW OF CHART PT HAS TRAZODONE LISTED AN ALLERGY. PT REQUESTED SOMETHING FOR ANXIETY. PT WAS GIVEN VISTARIL 50 MG ORDERED. PT UP TO NURSES STATION AND ALSO RECEIVED SNACKS AND SOMETHING TO DRINK. ALL QUESTIONS ANSWERED AND SUPPORT VOICED.
[2023-08-23 06:00] VITALS: BP 98/61; PULSE 53; RESP 13; TEMP 36.9; O2SAT 97
[2023-08-23] MEDS: paliperidone ER 6 mg Tablet PO (08:39)
[2023-08-23] MEDS: nicotine 2 mg Gum BUCCAL ×2 (13:07→16:34)
[2023-08-23 14:00] VITALS: BP 97/61; PULSE 71; RESP 17; TEMP 36.8; O2SAT 96
--- NOTE | 2023-08-23 14:01 | P.NPUPN_ITS ---
Subjective NPU Subjective: Patient presented today reporting that he is doing okay. He was happy that he did speak with Beata from the social work team reporting that they are working on finding residence and good aftercare down in his area in [facility]. He reports that he is open to staying until that is arranged. He continues to be fairly isolative and in his room but more spontaneous in conversation. He denies any side effects or problems from his medication. Mental Status Exam MSE Comments: This is a well-nourished, well-developed, white male, in hospital scrubs, with limited grooming and intense eye contact. No abnormal movements, except for significant psychomotor retardation. Lying in bed reporting that he is fine. Somewhat cooperative with exam in mild distress. Speech was normal rate and v olume, with very truncated responses. Mood described as good; affect guarded and anxious. Thought process, linear and mostly organized. Thought content: patient denied any suicidal or homicidal ideation; no delusions reported, but guardedness and likely paranoia noted; patient denied any auditory or visual hallucinations. Attention, concentration, and memory appeared intact, but none were formally tested. Alert and oriented times three. Insight and judgment are limited. Impulse control is impaired. Vitals/I&O/Wt Last Vital Signs Temp 98.5 F 08/23/23 06:00 Pulse 53 L 08/23/23 06:00 Resp 13 08/23/23 06:00 BP 98/61 08/23/23 06:00 Pulse Ox 97 08/23/23 06:00 O2 Del Method Room Air 08/23/23 06:00 Weight last 48 hrs Weight 83.092 kg Weight 83.092 kg A&P Assessment and plan (1) Schizophrenia: (2) Acute psychosis: Plan This is a 32, almost 33-year-old, white male, with a history of mental health issues starting when he was young, not currently on medication due to it being discontinued secondary to being in nursing home, who presents on a 96-hour hold with a willingness to restart Invega. 1. Restarted Invega 6 mg p.o. daily and he was given Invega Sustenna 234 mg IM to the deltoid as a loading dose 08/13/2023, next dose given 08/20/2023, loading dose to deltoid. Next dose 09/17/23. 2. Encourage individual, group, and milieu therapy. 3. Continue q-15-minute checks for safety. 4. 21-day hold granted 08/17/2023. Involuntary Hold Information 96 Hour Hold: 96 Hour Involuntary Admission: Yes 96 Hour Hold Ending Date: 08/17/23 96 Hour Hold Ending Time: 16:32 Attestations NPU Medical Necessity Statement*: Inpatient hospitalization is medically necessary and the clinically appropriate intervention at this time. We will monitor medications and make changes as indicated. Likely length of stay is 7-10 days. Length of stay might be affected by 21-day hold and placement. Coding Level of Care Code Acute Code for [facility] Fwd Diagnoses Schizophrenia F20.9 Acute psychosis F23
[2023-08-23] MEDS: hyDROXYzine 25 mg Capsule 50 MG PO (16:47)
--- NOTE | 2023-08-23 16:48 | PC.NURSE ---
Addendum entered by Kaila Galeano LPN 08/23/23 18:34: prn med effective no further c/o anxiety Original Note: PRN VISTARIL 50 MG GIVEN PO PER PT C/O STATED ANXIETY
[2023-08-23 20:08] VITALS: BP 102/60; PULSE 65; RESP 16; TEMP 36.8; O2SAT 98
[2023-08-23] MEDS: trazodone 50 mg Tablet PO (20:31)
--- NOTE | 2023-08-23 21:14 | PC.NURSE ---
IN BED RESTING AROUSES TO VOICE. PT DENIES PAIN, DENIES SI/HI AND AVH AT THIS TIME. PT REQUEST VISTARIL FOR ANXIETY BUT IT IS TO EARLY WHEN THIS RN REVIEWED JAN. PT REQUESTED TRAZODONE TO HELP HIM SLEEP. IT APPEARS UPON REVIEWING ALLERGIES TRAZODONE WAS REMOVED FROM LIST. PT CONFIRMS THAT HE IS NOT ALLERGIC TO IT WELL AND STATES I DON'T KNOW WHY THATS ON MY LIST. TRAZODONE 50 MG GIVEN ORDERED FOR INSOMNIA. PT CONTINUES TO ISOLATE AND IS NOT INTERACTIVE WITH [facility] OR STAFF UNLESS HE HAS TO BE. PT IS EVASIVE ONLY ANSWERS YES/NO. PT IS ENCOURAGED TO STAY UP AND PLAY GAMES WITH [employer]ERS AND WATCH TV BUT HE DECLINES. SUPPORT WAS VOICED.
[2023-08-24 06:00] VITALS: BP 115/68; PULSE 75; RESP 16; TEMP 36.9; O2SAT 96
--- NOTE | 2023-08-24 06:05 | PC.NURSE ---
TRAZODONE D50 MG TAHT WAS GIVEN LAST NIGHT IS DEEMED EFFECTIVE. PT HAS SLEPT ALL NIGHT AND CONTINUES TO SLEEP WITHOUT DIFFICULTY.
[2023-08-24] MEDS: paliperidone ER 6 mg Tablet PO (08:31)
[2023-08-24] MEDS: nicotine 2 mg Gum BUCCAL ×2 (12:52→15:07)
--- NOTE | 2023-08-24 13:25 | W.PM.NPUPNS ---
Subjective NPU Subjective: Patient presented today seemingly having less isolation as he was ultimately seen outside of his room which has been fairly uncommon. He approached this senior mortgage underwriter about the planning for discharge and transitional housing. We agreed that if there was some kind of clear alternative for his return to his community with some kind of nonhomeless circumstance we will be feeling much more confident in his chance for success. He denies any side effects to the medication. Mental Status Exam MSE Comments: This is a well-nourished, well-developed, white male, in hospital scrubs, with limited grooming and less intense eye contact. No abnormal movements. More cooperative with exam in mild distress. Speech was slightly more spontaneous normal rate and volume, with less truncated responses. Mood described as good; affect less guarded and anxious. Thought process, linear and mostly organized. Thought content: patient denied any suicidal or homicidal ideation; no delusions reported, but guardedness and likely paranoia noted; patient denied any auditory or visual hallucinations. Attention, concentration, and memory appeared intact, but none were formally tested. Alert and oriented times three. Insight and judgment are limited. Impulse control is impaired. Vitals/I&O/Wt Last Vital Signs Temp 98.4 F 08/24/23 06:00 Pulse 75 08/24/23 06:00 Resp 16 08/24/23 06:00 BP 115/68 08/24/23 06:00 Pulse Ox 96 08/24/23 06:00 O2 Del Method Room Air 08/24/23 06:00 A&P Assessment and plan (1) Schizophrenia: (2) Acute psychosis: Plan This is a 32, almost 33-year-old, white male, with a history of mental health issues starting when he was young, not currently on medication due to it being discontinued secondary to being in [facility], who presents on a 96-hour hold with a willingness to restart Invega. 1. Restarted Invega 6 mg p.o. daily and he was given Invega Sustenna 234 mg IM to the deltoid as a loading dose 08/13/2023, next dose given 08/20/2023, loading dose to deltoid. Next dose 09/17/23. 2. Encourage individual, group, and milieu therapy. 3. Continue q-15-minute checks for safety. 4. 21-day hold granted 08/17/2023. Involuntary Hold Information 96 Hour Hold: 96 Hour Involuntary Admission: Yes 96 Hour Hold Ending Date: 08/17/23 96 Hour Hold Ending Time: 16:32 Attestations NPU Medical Necessity Statement*: Inpatient hospitalization is medically necessary and the clinically appropriate intervention at this time. We will monitor medications and make changes as indicated. Likely length of stay is 7-10 days. Length of stay might be affected by 21-day hold and placement. Coding Level of Care Code Acute Code for [facility] Fwd Diagnoses Schizophrenia F20.9 Acute psychosis F23
[2023-08-24 14:00] VITALS: BP 92/61; PULSE 93; RESP 18; TEMP 36.5; O2SAT 96
[2023-08-24] MEDS: hyDROXYzine 25 mg Capsule 50 MG PO (14:14)
[2023-08-24] MEDS: OLANZapine 5 mg ODT PO (16:47)
[2023-08-24] MEDS: nicotine 4 mg lozenge MUCOUS MEM (17:06)
[2023-08-24 21:10] VITALS: BP 94/58; PULSE 65; RESP 16; TEMP 37; O2SAT 95
[2023-08-25 06:00] VITALS: BP 103/61; PULSE 64; RESP 18; TEMP 37.1; O2SAT 95
[2023-08-25] MEDS: paliperidone ER 6 mg Tablet PO (08:23)
[2023-08-25] MEDS: nicotine 2 mg Gum BUCCAL ×2 (13:29→15:44)
[2023-08-25 14:00] VITALS: BP 108/72; PULSE 88; RESP 18; TEMP 36.8; O2SAT 97
[2023-08-25] MEDS: OLANZapine 5 mg ODT PO (15:21)
--- NOTE | 2023-08-25 19:57 | W.PM.NPUPNS ---
Subjective NPU Subjective: Patient presented today continuing to show slow improvement. Slowly becoming less isolative per staff and direct observation. Seeming to be more goal-directed about the things that are necessary for discharge. He denies any side effects from the medication and continue to work with social work team on possibilities for housing, placement and follow-up. Mental Status Exam MSE Comments: This is a well-nourished, well-developed, white male, in hospital scrubs, with limited grooming and less intense eye contact. No abnormal movements. More cooperative with exam in mild distress. Speech was slightly more spontaneous normal rate and volume, with less truncated responses. Mood described as good; affect less guarded and anxious. Thought process, linear and mostly organized. Thought content: patient denied any suicidal or homicidal ideation; no delusions reported, but guardedness and likely paranoia noted; patient denied any auditory or visual hallucinations. Attention, concentration, and memory appeared intact, but none were formally tested. Alert and oriented times three. Insight and judgment are limited. Impulse control is impaired. Vitals/I&O/Wt Last Vital Signs Temp 98.2 F 08/25/23 14:00 Pulse 88 08/25/23 14:00 Resp 18 08/25/23 14:00 BP 108/72 08/25/23 14:00 Pulse Ox 97 08/25/23 14:00 O2 Del Method Room Air 08/25/23 06:00 A&P Assessment and plan (1) Schizophrenia: (2) Acute psychosis: Plan This is a 32, almost 33-year-old, white male, with a history of mental health issues starting when he was young, not currently on medication due to it being discontinued secondary to being in group home, who presents on a 96-hour hold with a willingness to restart Invega. 1. Restarted Invega 6 mg p.o. daily and he was given Invega Sustenna 234 mg IM to the deltoid as a loading dose 08/13/2023, next dose given 08/20/2023, loading dose to deltoid. Next dose 09/17/23. 2. Encourage individual, group, and milieu therapy. 3. Continue q-15-minute checks for safety. 4. 21-day hold granted 08/17/2023. Involuntary Hold Information 96 Hour Hold: 96 Hour Involuntary Admission: Yes 96 Hour Hold Ending Date: 08/17/23 96 Hour Hold Ending Time: 16:32 Attestations NPU Medical Necessity Statement*: Inpatient hospitalization is medically necessary and the clinically appropriate intervention at this time. We will monitor medications and make changes as indicated. Likely length of stay is 7-10 days. Length of stay might be affected by 21-day hold and placement. Coding Level of Care Code Acute Code for [facility] Fwd Diagnoses Schizophrenia F20.9 Acute psychosis F23
[2023-08-25 20:20] VITALS: BP 94/59; PULSE 60; RESP 16; TEMP 36.9; O2SAT 96
[2023-08-26 06:00] VITALS: BP 97/61; RESP 16; O2SAT 96
[2023-08-26] MEDS: paliperidone ER 6 mg Tablet PO (08:49)
[2023-08-26] MEDS: nicotine 2 mg Gum BUCCAL ×3 (12:42→17:22)
--- NOTE | 2023-08-26 13:04 | W.PM.NPUPNS ---
Subjective NPU Subjective: Patient presented today continuing to be more spontaneous and self driven about the situation regarding his departure and where he might go. He continues to be somewhat limited in his appreciation of the process, but continues to work with the social work team on possible locations for discharge. We continue to discuss working with his probation to make sure that the options were exploring would be allowed given the limited locations within his county. Mental Status Exam MSE Comments: This is a well-nourished, well-developed, white male, in hospital scrubs, with limited grooming and less intense eye contact. No abnormal movements. More cooperative with exam in mild distress. Speech was slightly more spontaneous normal rate and volume, with less truncated responses. Mood described as good; affect less guarded and anxious. Thought process, linear and mostly organized. Thought content: patient denied any suicidal or homicidal ideation; no delusions reported, but guardedness and likely paranoia noted; patient denied any auditory or visual hallucinations. Attention, concentration, and memory appeared intact, but none were formally tested. Alert and oriented times three. Insight and judgment are limited. Impulse control is impaired. Vitals/I&O/Wt Last Vital Signs Temp 98.4 F 08/25/23 20:20 Pulse 60 08/25/23 20:20 Resp 16 08/26/23 06:00 BP 97/61 08/26/23 06:00 Pulse Ox 96 08/26/23 06:00 O2 Del Method Room Air 08/26/23 06:00 A&P Assessment and plan (1) Schizophrenia: (2) Acute psychosis: Plan This is a 32, almost 33-year-old, white male, with a history of mental health issues starting when he was young, not currently on medication due to it being discontinued secondary to being in skilled nursing, who presents on a 96-hour hold with a willingness to restart Invega. 1. Restarted Invega 6 mg p.o. daily and he was given Invega Sustenna 234 mg IM to the deltoid as a loading dose 08/13/2023, next dose given 08/20/2023, loading dose to deltoid. Next dose 09/17/23. 2. Encourage individual, group, and milieu therapy. 3. Continue q-15-minute checks for safety. 4. 21-day hold granted 08/17/2023. Involuntary Hold Information 96 Hour Hold: 96 Hour Involuntary Admission: Yes 96 Hour Hold Ending Date: 08/17/23 96 Hour Hold Ending Time: 16:32 Attestations NPU Medical Necessity Statement*: Inpatient hospitalization is medically necessary and the clinically appropriate intervention at this time. We will monitor medications and make changes as indicated. Likely length of stay is 7-10 days. Length of stay might be affected by 21-day hold and placement. Coding Level of Care Code Acute Code for [facility] Fwd Diagnoses Schizophrenia F20.9 Acute psychosis F23
[2023-08-26 14:00] VITALS: BP 104/70; PULSE 104; RESP 18; TEMP 36.8; O2SAT 96
[2023-08-26] MEDS: hyDROXYzine 25 mg Capsule 50 MG PO (15:24)
[2023-08-26 19:39] VITALS: BP 94/59; PULSE 73; RESP 14; TEMP 36.9; O2SAT 98
[2023-08-27 06:00] VITALS: BP 95/58; PULSE 65; RESP 14; TEMP 36.9; O2SAT 97
[2023-08-27] MEDS: paliperidone ER 6 mg Tablet PO (08:40)
--- NOTE | 2023-08-27 11:06 | W.PM.NPUPNS ---
Subjective NPU Subjective: Patient presented today reporting that he is doing well. We received some good news and that we may have found a place for him to go reducing the likely time to discharge to beginning of the week however we discussed the fact that his mother is backing down on the plan for guardianship based on although we had provided a letter and interrogatories supporting guardianship. He agreed to work with us on this possible placement back in his area which was his desire. Mental Status Exam MSE Comments: This is a well-nourished, well-developed, white male, in hospital scrubs, with limited grooming and less intense eye contact. No abnormal movements. More cooperative with exam in mild distress. Speech was slightly more spontaneous normal rate and volume, with less truncated responses. Mood described as good; affect less guarded and anxious. Thought process, linear and mostly organized. Thought content: patient denied any suicidal or homicidal ideation; no delusions reported, but guardedness and likely paranoia noted; patient denied any auditory or visual hallucinations. Attention, concentration, and memory appeared intact, but none were formally tested. Alert and oriented times three. Insight and judgment are limited. Impulse control is impaired. Vitals/I&O/Wt Last Vital Signs Temp 98.4 F 08/27/23 06:00 Pulse 65 08/27/23 06:00 Resp 14 08/27/23 06:00 BP 95/58 08/27/23 06:00 Pulse Ox 97 08/27/23 06:00 O2 Del Method Room Air 08/27/23 06:00 A&P Assessment and plan (1) Schizophrenia: (2) Acute psychosis: Plan This is a 32, almost 33-year-old, white male, with a history of mental health issues starting when he was young, not currently on medication due to it being discontinued secondary to being in custodial, who presents on a 96-hour hold with a willingness to restart Invega. 1. Restarted Invega 6 mg p.o. daily and he was given Invega Sustenna 234 mg IM to the deltoid as a loading dose 08/13/2023, next dose given 08/20/2023, loading dose to deltoid. Next dose 09/17/23. 2. Encourage individual, group, and milieu therapy. 3. Continue q-15-minute checks for safety. 4. 21-day hold granted 08/17/2023. Involuntary Hold Information 96 Hour Hold: 96 Hour Involuntary Admission: Yes 96 Hour Hold Ending Date: 08/17/23 96 Hour Hold Ending Time: 16:32 Attestations NPU Medical Necessity Statement*: Inpatient hospitalization is medically necessary and the clinically appropriate intervention at this time. We will monitor medications and make changes as indicated. Likely length of stay is 7-10 days. Length of stay might be affected by 21-day hold and placement. Coding Level of Care Code Acute Code for [facility] Fwd Diagnoses Schizophrenia F20.9 Acute psychosis F23
[2023-08-27] MEDS: nicotine 2 mg Gum BUCCAL ×2 (12:12→16:05)
[2023-08-27 14:00] VITALS: BP 117/78; PULSE 98; RESP 16; TEMP 36.6; O2SAT 97
[2023-08-27] MEDS: hyDROXYzine 25 mg Capsule 50 MG PO (15:44)
[2023-08-27 20:33] VITALS: BP 103/64; PULSE 70; RESP 18; TEMP 36.4; O2SAT 95
[2023-08-28 06:00] VITALS: BP 99/64; PULSE 56; RESP 16; O2SAT 96
[2023-08-28] MEDS: paliperidone ER 6 mg Tablet PO (08:48)
--- NOTE | 2023-08-28 09:38 | W.PM.NPUPNS ---
Subjective NPU Subjective: Patient presented today reporting that he is doing okay. He is optimistic about the outcomes for housing. We discussed that another doctor would be in tomorrow but would have all the information we worked on since he arrived. We discussed the treatment team returning on Wednesday and the likelihood of discharge to structured residential facility sometime next week hopefully Mental Status Exam MSE Comments: This is a well-nourished, well-developed, white male, in hospital scrubs, with limited grooming and less intense eye contact. No abnormal movements. More cooperative with exam in mild distress. Speech was slightly more spontaneous normal rate and volume, with less truncated responses. Mood described as good; affect less guarded and anxious. Thought process, linear and mostly organized. Thought content: patient denied any suicidal or homicidal ideation; no delusions reported, but guardedness and likely paranoia noted; patient denied any auditory or visual hallucinations. Attention, concentration, and memory appeared intact, but none were formally tested. Alert and oriented times three. Insight and judgment are limited. Impulse control is impaired. Vitals/I&O/Wt Last Vital Signs Temp 97.6 F 08/27/23 20:33 Pulse 56 L 08/28/23 06:00 Resp 16 08/28/23 06:00 BP 99/64 08/28/23 06:00 Pulse Ox 96 08/28/23 06:00 O2 Del Method Room Air 08/27/23 20:33 A&P Assessment and plan (1) Schizophrenia: (2) Acute psychosis: Plan This is a 32, almost 33-year-old, white male, with a history of mental health issues starting when he was young, not currently on medication due to it being discontinued secondary to being in nursing home, who presents on a 96-hour hold with a willingness to restart Invega. 1. Restarted Invega 6 mg p.o. daily and he was given Invega Sustenna 234 mg IM to the deltoid as a loading dose 08/13/2023, next dose given 08/20/2023, loading dose to deltoid. Next dose 09/17/23. 2. Encourage individual, group, and milieu therapy. 3. Continue q-15-minute checks for safety. 4. 21-day hold granted 08/17/2023. Involuntary Hold Information 96 Hour Hold: 96 Hour Involuntary Admission: Yes 96 Hour Hold Ending Date: 08/17/23 96 Hour Hold Ending Time: 16:32 Attestations NPU Medical Necessity Statement*: Inpatient hospitalization is medically necessary and the clinically appropriate intervention at this time. We will monitor medications and make changes as indicated. Likely length of stay is 6-9 days. Length of stay might be affected by 21-day hold and placement. Coding Level of Care Code Acute Code for [facility] Fwd Diagnoses Schizophrenia F20.9 Acute psychosis F23
[2023-08-28] MEDS: nicotine 2 mg Gum BUCCAL ×3 (12:21→17:02)
[2023-08-28 13:10] VITALS: BP 124/77; PULSE 88; RESP 12; TEMP 36.8; O2SAT 96
[2023-08-28] MEDS: hyDROXYzine 25 mg Capsule 50 MG PO (14:50)
[2023-08-28 20:06] VITALS: BP 90/57; PULSE 71; RESP 18; TEMP 36.9; O2SAT 94
[2023-08-29 06:00] VITALS: BP 103/68; PULSE 59; RESP 16; TEMP 36.9; O2SAT 96
[2023-08-29] MEDS: paliperidone ER 6 mg Tablet PO (08:28)
[2023-08-29] MEDS: nicotine 2 mg Gum BUCCAL ×4 (08:55→17:54)
[2023-08-29 12:22] VITALS: BP 109/70; PULSE 91; RESP 18; O2SAT 96
[2023-08-29] MEDS: hyDROXYzine 25 mg Capsule 50 MG PO (13:25)
--- NOTE | 2023-08-29 16:51 | W.PM.NPUPNS ---
Subjective NPU Subjective: 32-year-old white male with schizophrenia with admission secondary to worsening psychosis. He had been less isolative on the milieu. He had reported no side effects from his Invega and stated that he was hopeful about going home. He reported that he had decompensated because he had been off of his medications while he was incarcerated. He reported no side effects from his medication. He had reported that he may be able to find a new home to reside at when he leaves here. He had expressed concern about returning home. Mental Status Exam MSE Comments: This is a well-nourished, well-developed, white male, in hospital scrubs, with limited grooming and less intense eye contact. No abnormal movements. He was more cooperative with exam in mild distress. Speech was slightly more spontaneous normal rate and volume, with less truncated responses. Mood described as okay.; His affect remained blunted. Thought process, linear and mostly organized. Thought content: patient denied any suicidal or homicidal ideation; no delusions reported, he did appear somewhat guarded and paranoid.; patient denied any auditory or visual hallucinations. Attention, concentration, and memory appeared intact, but none were formally tested. He was alert and oriented times three. Insight and judgment are limited. Impulse control is impaired. Vitals/I&O/Wt Last Vital Signs Temp 98.4 F 08/29/23 06:00 Pulse 91 08/29/23 12:22 Resp 18 08/29/23 12:22 BP 109/70 08/29/23 12:22 Pulse Ox 96 08/29/23 12:22 O2 Del Method Room Air 08/29/23 06:00 Weight last 48 hrs Weight 89.471 kg A&P Assessment and plan (1) Schizophrenia: (2) Acute psychosis: Plan This is a 32, almost 33-year-old, white male, with a history of mental health issues starting when he was young, not currently on medication due to it being discontinued secondary to being in nursing home, who presents on a 96-hour hold with a willingness to restart Invega. 1. Continue Invega 6 mg p.o. daily and he was given Invega Sustenna 234 mg IM to the deltoid as a loading dose 08/13/2023, next dose given 08/20/2023, loading dose to deltoid. Next dose 09/17/23. Patient still appears psychotic. 2. Encourage individual, group, and milieu therapy. 3. Continue q-15-minute checks for safety. 4. 21-day hold granted 08/17/2023. Involuntary Hold Information 96 Hour Hold: 96 Hour Involuntary Admission: Yes 96 Hour Hold Ending Date: 08/17/23 96 Hour Hold Ending Time: 16:32 Attestations NPU Medical Necessity Statement*: Inpatient hospitalization is medically necessary and the clinically appropriate intervention at this time. We will monitor medications and make changes as indicated. The patient's likely length of stay is 6-9 days. Length of stay might be affected by 21-day hold and placement. Coding Level of Care Code Acute Code for [facility] Fwd Diagnoses Schizophrenia F20.9 Acute psychosis F23
[2023-08-29 19:27] VITALS: BP 90/56; PULSE 85; RESP 16; TEMP 36.9; O2SAT 95
[2023-08-30 06:00] VITALS: BP 101/64; PULSE 63; RESP 15; TEMP 36.6; O2SAT 95
[2023-08-30] MEDS: paliperidone ER 6 mg Tablet PO (08:02)
[2023-08-30] MEDS: hyDROXYzine 25 mg Capsule 50 MG PO (08:39)
[2023-08-30] MEDS: nicotine 2 mg Gum BUCCAL ×2 (10:42→13:24)
[2023-08-30 13:44] VITALS: BP 114/78; PULSE 110; RESP 18; TEMP 36.9; O2SAT 98
[2023-08-30] MEDS: nicotine 21 mg Patch 1 PATCH TRANSDERMA (15:08)
--- NOTE | 2023-08-30 17:48 | P.NPUPN_ITS ---
Subjective NPU Subjective: 32-year-old white male with schizophrenia with admission secondary to worsening psychosis. The patient had reported that he was no longer hearing voices and reported that he was hopeful about going to a transitional residential facility or to a penitentiary. He had reported that he had not been given medications while he was incarcerated and had simply decompensated as result of not having follow-up after leaving care home. He had minimized the use of drugs or alcohol. Patient was compliant and redirectable on the milieu but still appeared to isolate on the milieu. Mental Status Exam MSE Comments: This is a well-nourished, well-developed, white male, in hospital scrubs, with limited grooming and less intense eye contact. No abnormal movements. He was more cooperative with exam in no acute distress. Speech was more spontaneous normal rate and volume, with less truncated responses. Mood described as better; His affect remained blunted. Thought process was linear and mostly organized. Thought content: patient denied any suicidal or homicidal ideation; no delusions reported, he was less guarded today. The patient denied any auditory or visual hallucinations. Attention, concentration, and memory appeared intact, but none were formally tested. He was alert and oriented times three. Insight and judgment were improving. Impulse control is limited. Vitals/I&O/Wt Last Vital Signs Temp 98.4 F 08/30/23 13:44 Pulse 110 H 08/30/23 13:44 Resp 18 08/30/23 13:44 BP 114/78 08/30/23 13:44 Pulse Ox 98 08/30/23 13:44 O2 Del Method Room Air 08/30/23 06:00 Weight last 48 hrs Weight 89.471 kg A&P Assessment and plan (1) Schizophrenia: (2) Acute psychosis: Plan This is a 32, almost 33-year-old, white male, with a history of mental health issues starting when he was young, not currently on medication due to it being discontinued secondary to being in care home, who presents on a 96-hour hold with a willingness to restart Invega. 1. Reduce Invega to 3mg at night and continue Invega Sustenna 234 mg IM to the deltoid as a loading dose 08/13/2023, next dose given 08/20/2023, loading dose to deltoid. Next dose 09/17/23. Patient still appears psychotic. 2. Encourage individual, group, and milieu therapy. 3. Continue q-15-minute checks for safety. 4. 21-day hold granted 08/17/2023. Involuntary Hold Information 96 Hour Hold: 96 Hour Involuntary Admission: Yes 96 Hour Hold Ending Date: 08/17/23 96 Hour Hold Ending Time: 16:32 Attestations NPU Medical Necessity Statement*: Inpatient hospitalization is medically necessary and the clinically appropriate intervention at this time. We will monitor medications and make changes as indicated. The patient's likely length of stay is 3-5 days. Coding Level of Care Code Acute Code for [facility] Fwd Diagnoses Schizophrenia F20.9 Acute psychosis F23
[2023-08-30 20:27] VITALS: BP 101/66; PULSE 72; RESP 15; TEMP 37; O2SAT 95
[2023-08-31 06:00] VITALS: BP 106/63; PULSE 55; RESP 16; TEMP 36.4; O2SAT 96
[2023-08-31] MEDS: paliperidone ER 3 mg Tablet PO (08:21)
[2023-08-31] MEDS: nicotine 2 mg Gum BUCCAL ×3 (08:21→16:55)
--- NOTE | 2023-08-31 09:10 | PC.NURSE ---
IN BED RESTING, CONTINUES TO BE EVASIVE WITH QUESTIONS. MOOD APPEARS TO BE IMPROVED. DENIES PAIN, SI/HI AND AVH AT THIS TIME. PT CONTINUES TO REST IN BED AND ISOLATE. PT ENCOURAGED TO GO TO GROUPS.
[2023-08-31] MEDS: OLANZapine 5 mg ODT PO (10:39)
[2023-08-31 14:00] VITALS: BP 101/57; PULSE 74; RESP 16; TEMP 36.9; O2SAT 96
[2023-08-31 16:08] LABS: Adenovirus Not Detected (NOT DETECT); Chlamydia Pneumoniae Not Detected (NOT DETECT); Coronavirus 229E,HKU1,NL63,OC4 Not Detected (NOT DETECT); Human Metapneumovirus Not Detected (NOT DETECT); Human Rhinovirus/Enterovirus Not Detected (NOT DETECT); Influenza A Not Detected (NOT DETECT); Influenza A H1 Not Detected (NOT DETECT); Influenza A H1-2009 Not Detected (NOT DETECT); Influenza A H3 Not Detected (NOT DETECT); Influenza B Not Detected (NOT DETECT); Mycoplasma Pneumoniae Not Detected (NOT DETECT); Parainfluenza Virus Type 1 Not Detected (NOT DETECT); Parainfluenza Virus Type 2 Not Detected (NOT DETECT); Parainfluenza Virus Type 3 Not Detected (NOT DETECT); Parainfluenza Virus Type 4 Not Detected (NOT DETECT); Respiratory Syncytial Virus A Not Detected (NOT DETECT); Respiratory Syncytial Virus B Not Detected (NOT DETECT); SARS-COV-2 Not Detected (NOT DETECT)
[2023-08-31] MEDS: hyDROXYzine 25 mg Capsule 50 MG PO (17:01)
--- NOTE | 2023-08-31 17:02 | PC.NURSE ---
Patient reports anxiety 05/17. Patient appears to be agitated. This nurse administered 50mg Vistaril PO to patient. Patient stated that he didn't know why he was feeling anxious.
--- NOTE | 2023-08-31 18:45 | P.NPUPN_ITS ---
Subjective NPU Subjective: 32-year-old white male with schizophrenia with hx of polysubstance abuse with worsening psychosis. The patient had reported desire to go to a half-way and stated that the interview today with that stated half-way had gone well. He was hopeful of the acceptance to this facility. He reported no auditory hallucinations. The patient had attended groups today. He had continued to require some prompting to complete activities of daily living. He had been less isolative on the milieu. Mental Status Exam MSE Comments: This is a well-nourished, well-developed, white male, in hospital scrubs, with slightly improved grooming and hygiene and adequate eye contact. No abnormal movements. He was more cooperative with exam in no acute distress. Speech was more spontaneous with normal rate and volume. Mood described as better; His affect remained blunted. Thought process was linear and mostly organized. Thought content: patient denied any suicidal or homicidal ideation; no delusions reported. The patient denied any auditory or visual hallucinations. Attention, concentration, and memory appeared intact, but none were formally tested. He was alert and oriented times three. Insight and judgment were improving. Impulse control is limited. Vitals/I&O/Wt Last Vital Signs Temp 98.5 F 08/31/23 14:00 Pulse 74 08/31/23 14:00 Resp 16 08/31/23 14:00 BP 101/57 08/31/23 14:00 Pulse Ox 96 08/31/23 14:00 O2 Del Method Room Air 08/31/23 06:00 A&P Assessment and plan (1) Schizophrenia: (2) Acute psychosis: Plan This is a 32, almost 33-year-old, white male, with a history of mental health issues starting when he was young, not currently on medication due to it being discontinued secondary to being in correction, who presents on a 96-hour hold with a willingness to restart Invega. 1. Continue Invega at 3mg at night with plan to discontinue tommorow. Continue Invega Sustenna 234 mg IM to the deltoid as a loading dose 08/13/2023, next dose given 08/20/2023, loading dose to deltoid. Next dose 09/17/23. Patient appears improved with consideration for discharge to facility in a few days if possible. 2. Encourage individual, group, and milieu therapy. 3. Continue q-15-minute checks for safety. 4. 21-day hold granted 08/17/2023. Involuntary Hold Information 96 Hour Hold: 96 Hour Involuntary Admission: Yes 96 Hour Hold Ending Date: 08/17/23 96 Hour Hold Ending Time: 16:32 Attestations NPU Medical Necessity Statement*: Inpatient hospitalization is medically necessary and the clinically appropriate intervention at this time. We will monitor medications and make changes as indicated. The patient's likely length of stay is 3-5 days. Coding Level of Care Code Acute Code for [facility] Fwd Diagnoses Schizophrenia F20.9 Acute psychosis F23
[2023-08-31 20:28] VITALS: BP 82/47; PULSE 88; RESP 15; TEMP 36.8; O2SAT 96
[2023-09-01 06:00] VITALS: BP 106/100; PULSE 60; RESP 16; TEMP 36.8; O2SAT 97
[2023-09-01] MEDS: paliperidone ER 3 mg Tablet PO (08:27)
[2023-09-01] MEDS: nicotine 2 mg Gum BUCCAL ×5 (08:32→17:04)
[2023-09-01] MEDS: hyDROXYzine 25 mg Capsule 50 MG PO (10:36)
[2023-09-01 14:00] VITALS: BP 109/70; PULSE 79; RESP 15; TEMP 36.8; O2SAT 96
[2023-09-01] MEDS: OLANZapine 5 mg ODT PO (15:51)
--- NOTE | 2023-09-01 17:31 | P.NPUPN_ITS ---
Subjective NPU Subjective: 32-year-old white male with schizophrenia with hx of polysubstance abuse with worsening psychosis. Patient had continue to require some prompting for activities of daily living but was compliant and cooperative on the milieu. He had expressed excitement with being able to leave tomorrow. He was okay with placement and reported no side effects from his medications. Patient had no mood symptoms endorsed. Mental Status Exam MSE Comments: This is a well-nourished, well-developed, white male, in hospital scrubs, with slightly improved grooming and hygiene and adequate eye contact. No abnormal movements. He was cooperative with exam in no acute distress. Speech was more spontaneous with normal rate and volume. Mood described as good. His affect remained blunted. Thought process was linear and mostly organized. Thought content: patient denied any suicidal or homicidal ideation; no delusions reported. The patient denied any auditory or visual hallucinations. He did not appear to be responding to internal stimuli. Attention, concentration, and memory appeared intact, but none were formally tested. He was alert and oriented times three. Insight and judgment were improving. Impulse control is limited. Vitals/I&O/Wt Last Vital Signs Temp 98.3 F 09/01/23 14:00 Pulse 79 09/01/23 14:00 Resp 15 09/01/23 14:00 BP 109/70 09/01/23 14:00 Pulse Ox 96 09/01/23 14:00 O2 Del Method Room Air 09/01/23 06:00 A&P Assessment and plan (1) Schizophrenia: (2) Acute psychosis: Plan This is a 32, almost 33-year-old, white male, with a history of mental health issues starting when he was young, not currently on medication due to it being discontinued secondary to being in correction, who presents on a 96-hour hold with a willingness to restart Invega. 1. Continue Invega at 3mg at night with plan to discontinue tommorow. Continue Invega Sustenna 234 mg IM to the deltoid as a loading dose 08/13/2023, next dose given 08/20/2023, loading dose to deltoid. Next dose 09/17/23. Patient appears improved with consideration for discharge to facility in a few days if possible. 2. Encourage individual, group, and milieu therapy. 3. Continue q-15-minute checks for safety. 4. 21-day hold granted 08/17/2023. Involuntary Hold Information 96 Hour Hold: 96 Hour Involuntary Admission: Yes 96 Hour Hold Ending Date: 08/17/23 96 Hour Hold Ending Time: 16:32 Attestations NPU Medical Necessity Statement*: Inpatient hospitalization is medically necessary and the clinically appropriate intervention at this time. We will monitor medications and make changes as indicated. The patient's likely length of stay is 1-2 days. Coding Level of Care Code Acute Code for [facility] Fwd Diagnoses Schizophrenia F20.9 Acute psychosis F23
[2023-09-01 20:03] VITALS: BP 99/62; PULSE 76; RESP 18; TEMP 36.8; O2SAT 98
[2023-09-02 06:00] VITALS: BP 102/66; PULSE 63; RESP 16; TEMP 36.8; O2SAT 97
[2023-09-02] MEDS: nicotine 2 mg Gum BUCCAL (07:36)
--- NOTE | 2023-09-02 08:11 | P.NPUDS_ITS ---
Diagnoses at Discharge Discharge Diagnosis (1) Schizophrenia: Status: Acute (2) Acute psychosis: Status: Acute Reason for Visit Reason for Visit: Schizophrenia Brief History: History of Present Illness Blue Vail is a 32 year old male presented to an outside hospital with reports of psychosis and concerns for bizarre behaviors.? He was put on a 96- hour hold and transferred to [facility] and admitted to the neuropsychiatric unit for definitive treatment of those issues. The patient presents today reporting that he is not currently taking any psychiatric medications. He reports that he is not sure why he is here. He is on a 96-hour hold but reports he does not know why. The patient endorses a couple previous psychiatric hospitalizations, at [place]. The first time was about six to seven years ago. He reports outpatient [place] [facility] He endorses that he has been on Invega, in the past. He reports that he is not taking it anymore because he went to [facility]. He reports that the Invega was helpful. He reports that he did the Invega injections. The patient reports that he smokes cigarettes heavily. He endorses daily alcohol use. He endorses marijuana use. He denies cocaine, methamphetamine, or opiates. He denies drug rehabilitation, DUI, or other drug related charges. The patient reports that his mental health issues started when he was younger. He reports that he was on ADHD medications. He denies hearing voices or having paranoia. He denies depression or anxiety. He endorses some traumas and nightmares and flashbacks, but not recently. We discussed the risks, benefits, and alternatives of starting an oral dose of Invega today and then starting the Invega injection before he is discharged, and he understood and agreed to proceed as is documented in this note. PSYCHIATRIC HISTORY: As above. He was questionable as a historian and often could not give more than vague answers. SUBSTANCE ABUSE HISTORY: As above.? FAMILY HISTORY: The patient denies mental health issues on either side of the family. He endorses addiction issues on both sides of the family. He denies any suicide attempts or completions in the family. DEVELOPMENTAL HISTORY: The patient denies any issues with his mother?s or delivery of him. The patient reports learning to walk and talk and meeting developmental miles tones on time. The patient endorses speech therapy, learning support, emotional support, special education classes. He endorses having an IEP. PSYCHOSOCIAL HISTORY: The patient reports that his mother and father were not together at his . He reports that he has an older brother from that union. He reports that his father had other children. He describes his childhood as good. He denies emot ional, physical, or sexual abuse. He denies CYS involvement. He endorses traumas outside the home. He reports that he did not graduate from high school and went to the 11th grade. He has no other training. He endorses being heterosexual, with his longest relationship being a couple years. He has never been and has no children. He denies service or a methodist belief system. 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 He is not currently working and is on disability, which started a couple years ago, for schizophrenia. He reports that he is currently homeless. LEGAL HISTORY: The patient reports he has been to [facility] a couple of times. The longest times was three years. MEDICAL HISTORY: The patient denies any known allergies to medications. He denies any major medical issues. Hospital Course Hospital Course During the hospitalization, the patient had routine laboratory studies which were within normal limits except for a few outliers.? Additionally, there was a general medical evaluation which was also within normal limits and revealed no new acute processes.? At the time of discharge, lethality was denied and psychosis was resolving.? Mood and anxiety were well managed.? The patient endorsed a plan to avoid all drugs of abuse and follow up with the aftercare recommendations of the treatment team.? The patient was evaluated and deemed to be absent credible lethality and had achieved the maximum benefit from an inpatient hospitalization, and so was discharged. ?The patient was started on Invega oral and titrated up to a dose of 9 mg and was then simultaneously started on Invega Sustenna and was given 2 separate doses approximately 1 week apart with noted improvement in psychosis. Patient was agreeable to continuing this medication on a monthly basis and the oral Invega was discontinued prior to his discharge. Involuntary Hold Information 96 Hour Hold: 96 Hour Involuntary Admission: Yes 96 Hour Hold Ending Date: 08/17/23 96 Hour Hold Ending Time: 16:32 Mental Status Exam MSE Comments: This is a well-nourished, well-developed, white male, in hospital scrubs, with slightly improved grooming and hygiene and adequate eye contact. No abnormal movements. He was cooperative with exam in no acute distress. Speech was more spontaneous with normal rate and volume. Mood described as good. His affect remained blunted. Thought process was linear and mostly organized. Thought content: patient denied any suicidal or homicidal ideation; no delusions reported. The patient denied any auditory or visual hallucinations. He did not appear to be responding to internal stimuli. Attention, concentration, and memory appeared intact, but none were formally tested. He was alert and oriented times three. Insight and judgment were improving. Impulse control is limited. Discharge Data Studies Completed and Pending: Pending at discharge Category Date Time Status [id number]-My ld Plus Routine Lab 08/31/23 12:05 Received Laboratory Results Coronavirus 229E ( PCR) Not detected (NO T DETECT) 08/31/23 12:25 SARS-CoV-2 (PCR) Not detected (NO T DETECT) 08/31/23 12:25 Vitals: Last Vital Signs Temp 98.3 F 09/02/23 06:00 Pulse 63 09/02/23 06:00 Resp 16 09/02/23 06:00 BP 102/66 09/02/23 06:00 Pulse Ox 97 09/02/23 06:00 O2 Del Method Room Air 09/02/23 06:00 Discharge Plan Discharge Patient Disposition: Home Condition: Stable Prescriptions: New Invega Sustenna 156 mg/mL syringe 156 mg IM Q30D Qty: 1 1RF Rx Instructions: Patient to be given this shot on 09/17/23 in Delto[place]. Discharge Orders: Discharge Order (Routine); Ordered 09/02/23 Ordered By: Aaron Prado Referrals: [facility] [Other] [facility] [Other] - 09/02/23 Discharge Diet: Usual diet Discharge Activity: Resume usual activity Patient Instructions: Paliperidone (By injection) (Invega Sustenna, Invega Tri nza, Invega..., Schizophrenia (DC), Opioid Safety Discharge Attestations NPU Time Spent in Discharge Care*: less than 30 min Specific Discharge Activities: Specific discharge activities: educating patient, discussing with spring encaser/social workers/dc planners and documentin g/other paperwork Coding Level of Care Code Acute Chg FW DC note Diagnoses Schizophrenia F20.9 Acute psychosis F23
[2023-09-02 08:15] VITALS: BP 102/66; PULSE 63; RESP 16; TEMP 36.8; O2SAT 97
--- NOTE | 2023-09-02 10:14 | DCPLANNER ---
IMM was printed. Rights explained and given to pt and copy placed in her file.
[2023-09-02 13:10] LABS: Quantiferon Mitogen 8.21 IU/mL; Quantiferon Nil 0.02 IU/mL; Quantiferon Plus TB1 0.13 IU/mL; Quantiferon Plus TB2 0.17 IU/mL; Quantiferon TB Gold NEGATIVE (NEGATIVE)
== END 2023-09-02 10:08 | disposition home or self-care (01) | DRG 885 ==
PROVIDERS: Admitting Provider Psychiatry & Neurology Psychiatry; Visit Provider Psychiatry & Neurology Psychiatry
DX: F20.9 Schizophrenia, unspecified (principal); Z59.00 Homelessness unspecified; Z11.52 Encounter for screening for COVID-19
CPT/HCPCS: 86480; 87635; 90471; 90686; 96372; 97165; 97167